=== PATIENT | male | born 1990 ===

== ENCOUNTER 2021-02-22 16:58 | Emergency (ER) | payer SELFPAY ==
[~2021-02-22] VITALS: Ht 175.3 cm; Wt 73.0 kg
[2021-02-22 16:59] VITALS: BP 107/65
== END 2021-02-22 20:03 | disposition left against medical advice (07) ==
LOC: EMS 17:00
DX: Z00.8 Encounter for other general examination (principal); Z53.21 Procedure and treatment not carried out due to patient leaving prior to being seen by health care provider